=== PATIENT | female | born 1965 | race Caucasian/White ===

== ENCOUNTER 2021-06-13 10:08 | Outpatient (CLI) | payer BC, SELFPAY ==
[2021-06-13 13:13] LABS: T4 Free Direct 0.97 ng/dL (0.76-1.46); Thyroid Stim Hormone (TSH) 2.01 uIU/mL (0.358-3.74)
[2021-06-14 08:44] LABS: Thyroid Peroxidase AB 223 IU/mL (0-34)
== END 2021-06-13 23:59 | disposition home or self-care (01) ==
LOC: BIMLAB 10:09
PROVIDERS: Visit Provider Internal Medicine Endocrinology, Diabetes & Metabolism
DX: E04.1 Nontoxic single thyroid nodule (principal)
CPT/HCPCS: 36415; 84439; 84443; 86376